=== PATIENT | female | born 2000 | race Caucasian/White ===

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

== ENCOUNTER → 2021-01-08 23:27 | Outpatient (CLI) | payer OTHER, SELFPAY | PROVIDERS: PCP Nurse Practitioner Family; Visit Provider Emergency Medicine | DX: Z20.822 Contact with and (suspected) exposure to COVID-19 (principal); U07.1 COVID-19 | CPT/HCPCS: C9803; U0003; U0005 ==

== ENCOUNTER 2021-01-31 17:33 | Emergency (ER) | payer OTHER, SELFPAY ==
[2021-01-31 17:36] VITALS: BP 152/90; PULSE 101; RESP 16; TEMP 36.6; O2SAT 98; BMI 44.6
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
[2021-01-31 18:11] VITALS: BP 152/90; PULSE 101; RESP 16; TEMP 36.6; O2SAT 98
== END 2021-01-31 18:27 | disposition home or self-care (01) ==
LOC: ER 18:15
PROVIDERS: Emergency Provider Emergency Medicine; PCP Nurse Practitioner Family
DX: S09.90XA Unspecified injury of head, initial encounter (principal)
CPT/HCPCS: 99281

== ENCOUNTER 2021-01-31 19:12 | Observation (INO) | payer OTHER, SELFPAY ==
[2021-01-31 19:27] VITALS: BMI 31.4
[2021-01-31 19:39] LABS: Microscopic, Urine URINE MICROSCOPIC (MICROSCOPIC)
[2021-01-31 19:41] LABS: Appearance,Urine SL CLOUDY (Clear); Bilirubin,Urine Negative (Negative); Blood, Urine Negative (Negative); Color,Urine YELLOW (Yellow); Glucose,Urine (UA) Negative (Negative); Ketones,Urine Negative (Negative); Leukocyte Esterase,Urine 1+ (Negative); Nitrate,Urine Negative (Negative); PH,Urine 6.5 (5.0-8.5); Protein,Urine Negative (Negative); Specific Gravity, Urine 1.025 (1.005-1.030); Urobilinogen,Urine 0.2 EU/dl (0.2)
[2021-01-31 19:44] LABS: Bacteria,Urine Trace /lpf; WBC,Urine 20-50 #/hpf (0-3)
[2021-01-31 19:55] LABS: Barbiturates Screen,Urine Negative ng/ml (<200); Benzodiazepines Screen,Urine Negative ng/ml (<200)
[2021-01-31 19:56] LABS: Amphetamine/Metha Screen,Urine Negative ng/ml (<1000)
[2021-01-31 19:57] LABS: Cannabinoid Screen,Urine Negative ng/ml (<50); Cocaine Screen,Urine Negative ng/ml (<300)
[2021-01-31 19:58] LABS: Methadone Screen,Urine Negative ng/ml (<300)
[2021-01-31 19:59] LABS: Opiate Screen,Urine Negative ng/ml (<300); Phencyclidine Screen,Urine Negative ng/ml (<25)
[2021-01-31 20:00] VITALS: BP 124/72; PULSE 98; RESP 18; TEMP 37; O2SAT 96; BMI 45.4
[2021-01-31 20:24] LABS: Influenza A, PCR Not Detected (NotDetected); Influenza B, PCR Not Detected (NotDetected)
[2021-01-31 20:30] LABS: Basophils % 0.2 % (0.1-2.0); Eosinophils # 0.2 K/mm3 (0.0-0.4); Eosinophils % 1.2 % (0.1-12.0); Hematocrit 35.7 % (37.0-47.0); Hemoglobin 11.6 g/dL (12.2-16.2); Lymphocytes # 1.7 K/mm3 (0.7-4.5); Lymphocytes % 11.6 % (10-50); Mean Corpuscular HGB Conc 32.4 g/dL (31.8-35.4); Mean Corpuscular Hemoglobin 27.9 pg (27.0-31.2); Mean Corpuscular Volume 86.1 fl (81-99); Mean Platelet Volume 8.6 fl (7.4-10.4); Monocytes # 0.6 K/mm3 (0.1-1.0); Monocytes % 4.1 % (1.7-9.3); Platelet Count 261 K/mm3 (142-424); Red Blood Count 4.15 M/mm3 (4.20-5.40); Red Cell Distribution Width 14.5 % (11.5-17.5); White Blood Count 14.5 K/mm3 (4.5-13.0)
[2021-01-31 20:54] LABS: Coronavirus 19, PCR Detected (NotDetected)
[2021-02-01] VITALS: BP 127/67; PULSE 90; RESP 18; TEMP 36.6; O2SAT 99
[2021-02-01 06:54] LABS: Basophils % 0.3 % (0.1-2.0); Eosinophils # 0.2 K/mm3 (0.0-0.4); Eosinophils % 1.6 % (0.1-12.0); Hematocrit 34.5 % (37.0-47.0); Hemoglobin 11.2 g/dL (12.2-16.2); Lymphocytes # 1.9 K/mm3 (0.7-4.5); Lymphocytes % 15.4 % (10-50); Mean Corpuscular HGB Conc 32.6 g/dL (31.8-35.4); Mean Corpuscular Hemoglobin 28.3 pg (27.0-31.2); Mean Corpuscular Volume 86.8 fl (81-99); Mean Platelet Volume 8.5 fl (7.4-10.4); Monocytes # 0.5 K/mm3 (0.1-1.0); Monocytes % 4.3 % (1.7-9.3); Neutrophils # 9.6 K/mm3 (1.8-7.8); Neutrophils % 78.2 % (37.0-80.0); Platelet Count 256 K/mm3 (142-424); Red Blood Count 3.97 M/mm3 (4.20-5.40); Red Cell Distribution Width 14.7 % (11.5-17.5); White Blood Count 12.2 K/mm3 (4.5-13.0)
--- NOTE | 2021-02-01 07:13 | HMH.PHAINT ---
MEDICATION RECONCILIATION COMPETE USING PREVIOUS DISCHARGE PAPERWORK
[2021-02-01 08:28] VITALS: BP 134/74; PULSE 93; RESP 20; TEMP 36.9; O2SAT 97
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
== END 2021-02-01 10:27 | disposition home or self-care (01) ==
LOC: OBOUT 19:13 → OB 19:13
PROVIDERS: Admitting Provider Obstetrics & Gynecology; PCP Obstetrics & Gynecology; Visit Provider Obstetrics & Gynecology
DX: S00.83XA Contusion of other part of head, initial encounter (principal); V47.5XXA Car driver injured in collision with fixed or stationary object in traffic accident, initial encounter; Y92.413 State road as the place of occurrence of the external cause; S09.90XA Unspecified injury of head, initial encounter; O98.513 Other viral diseases complicating pregnancy, third trimester; U07.1 COVID-19; Z3A.35 35 weeks gestation of pregnancy
CPT/HCPCS: 36415; 59025; 80305; 81001; 85025; 86850; 87086; 99281; C9803; G0378; U0003; U0005